=== PATIENT | male | born 1960 | race Caucasian/White ===

== ENCOUNTER 2019-11-13 22:10 | Inpatient (IN) | payer SELFPAY ==
[~2019-11-13] VITALS: Ht 190.5 cm; Wt 194.0 kg
[2019-11-13 23:38] LABS: BASOPHIL % 0.5 % (0-2); PLATELET COUNT 231 x10^3mcL (130-400)
[2019-11-13 23:39] LABS: RED CELL DISTRIBUTION WIDTH 15.6 % (11.5-14.5)
[2019-11-13 23:41] LABS: CARBON DIOXIDE 26.3 mmol/L (21-32); CREATININE SERUM 2.6 mg/dL (0.7-1.3); POTASSIUM SERUM 5.2 mmol/L (3.5-5.1)
[2019-11-13 23:45] LABS: ALBUMIN 3.5 g/dL (3.4-5.0); BILIRUBIN TOTAL 0.7 mg/dL (0.20-1.00); TOTAL PROTEIN, SERUM 7.7 g/dL (6.4-8.2)
[2019-11-14] VITALS (8 sets, daily range): BP systolic 84–116; BP diastolic 43–67
[2019-11-14] MEDS ORDERED: LASIX40 MG PO (00:23)
[2019-11-14] MEDS ORDERED: METOPROLOL SUC200 M2 PO (00:23)
[2019-11-14] MEDS ORDERED: ZESTRIL5 MG PO (00:24)
[2019-11-14] MEDS ORDERED: AMIODARONE200 MG PO (00:24)
[2019-11-14 01:14] LABS: CHOLESTEROL/HDL RATIO 8.5; MAGNESIUM 2.4 mg/dL (1.8-2.4); PHOSPHOROUS 4.2 mg/dL (2.5-4.9)
[2019-11-14 06:20] LABS: BASOPHIL % 0.6 % (0-2); PLATELET COUNT 202 x10^3mcL (130-400)
[2019-11-14 06:32] LABS: RED CELL DISTRIBUTION WIDTH 16.1 % (11.5-14.5)
[2019-11-14 06:41] LABS: CALCIUM 9.2 mg/dL (8.5-10.1); CARBON DIOXIDE 24.9 mmol/L (21-32); CREATININE SERUM 2.9 mg/dL (0.7-1.3); MAGNESIUM 2.3 mg/dL (1.8-2.4); PHOSPHOROUS 4.5 mg/dL (2.5-4.9); POTASSIUM SERUM 5.4 mmol/L (3.5-5.1)
[2019-11-14 12:06] LABS: UA SPECIFIC GRAVITY >=1.030 (1.005-1.035); microscopic required? YES; urine erythrocyte 2+ (NEGATIVE)
[2019-11-14 12:41] LABS: AMPHETAMINE QUAL UR NONE DETECTED (See below)
[2019-11-15 05:28] VITALS: BP 116/74
[2019-11-15 06:05] LABS: PLATELET COUNT 175 x10^3mcL (130-400)
[2019-11-15 06:19] LABS: RED CELL DISTRIBUTION WIDTH 15.6 % (11.5-14.5)
[2019-11-15 06:29] LABS: CALCIUM 9.1 mg/dL (8.5-10.1); CARBON DIOXIDE 24.4 mmol/L (21-32); CREATININE SERUM 3.2 mg/dL (0.7-1.3); MAGNESIUM 2.5 mg/dL (1.8-2.4); PHOSPHOROUS 4.4 mg/dL (2.5-4.9)
[2019-11-15 09:12] VITALS: BP 135/81
[2019-11-15 14:00] VITALS: BP 104/76
[2019-11-15 17:57] VITALS: BP 91/72
[2019-11-15 21:05] VITALS: BP 116/60
[2019-11-16] VITALS (7 sets, daily range): BP systolic 105–136; BP diastolic 61–85; Ht 190.5 cm; Wt 194.0 kg
[2019-11-16 07:10] LABS: BASOPHIL % 1.4 % (0-2); PLATELET COUNT 181 x10^3mcL (130-400)
[2019-11-16 07:15] LABS: RED CELL DISTRIBUTION WIDTH 15.4 % (11.5-14.5)
[2019-11-16 07:29] LABS: CARBON DIOXIDE 22.4 mmol/L (21-32); CREATININE SERUM 2.8 mg/dL (0.7-1.3); MAGNESIUM 2.3 mg/dL (1.8-2.4); PHOSPHOROUS 3.7 mg/dL (2.5-4.9); POTASSIUM SERUM 4.7 mmol/L (3.5-5.1)
[2019-11-17 03:26] VITALS: BP 111/72
[2019-11-17 05:37] LABS: BASOPHIL % 0.4 % (0-2); PLATELET COUNT 176 x10^3mcL (130-400); RED CELL DISTRIBUTION WIDTH 15.4 % (11.5-14.5)
[2019-11-17 06:13] LABS: CALCIUM 8.8 mg/dL (8.5-10.1); CARBON DIOXIDE 25.7 mmol/L (21-32); CREATININE SERUM 2.4 mg/dL (0.7-1.3); MAGNESIUM 2.3 mg/dL (1.8-2.4); PHOSPHOROUS 3.5 mg/dL (2.5-4.9)
[2019-11-17 08:15] VITALS: BP 101/71
[2019-11-17 16:14] VITALS: BP 105/68
[2019-11-17 19:30] VITALS: BP 103/74
[2019-11-17 23:26] VITALS: BP 95/51
[2019-11-18 02:39] LABS: BASOPHIL % 1.7 % (0-2); PLATELET COUNT 211 x10^3mcL (130-400)
[2019-11-18 02:45] LABS: CARBON DIOXIDE 23.5 mmol/L (21-32); CREATININE SERUM 2.4 mg/dL (0.7-1.3); MAGNESIUM 2.3 mg/dL (1.8-2.4); PHOSPHOROUS 3.4 mg/dL (2.5-4.9); POTASSIUM SERUM 4.8 mmol/L (3.5-5.1)
[2019-11-18 02:47] LABS: RED CELL DISTRIBUTION WIDTH 15.3 % (11.5-14.5)
[2019-11-18 03:26] VITALS: BP 124/76
[2019-11-18 07:30] VITALS: BP 105/78
[2019-11-18 12:09] VITALS: BP 107/78
[2019-11-18 15:52] VITALS: BP 114/69
[2019-11-18 19:14] VITALS: BP 104/69
[2019-11-19 04:37] VITALS: BP 127/70
[2019-11-19 07:23] LABS: CALCIUM 8.7 mg/dL (8.5-10.1); CARBON DIOXIDE 20.2 mmol/L (21-32); CREATININE SERUM 2.3 mg/dL (0.7-1.3); MAGNESIUM 2.4 mg/dL (1.8-2.4); PHOSPHOROUS 3.5 mg/dL (2.5-4.9); POTASSIUM SERUM 4.3 mmol/L (3.5-5.1)
[2019-11-19 07:52] LABS: BASOPHIL % 0.8 % (0-2); PLATELET COUNT 188 x10^3mcL (130-400)
[2019-11-19 08:32] LABS: RED CELL DISTRIBUTION WIDTH 15.6 % (11.5-14.5)
[2019-11-19 08:55] VITALS: BP 117/69
[2019-11-19 12:16] VITALS: BP 104/75
[2019-11-19 14:51] VITALS: BP 104/75
[2019-11-19 16:40] VITALS: BP 104/62
[2019-11-19 21:34] VITALS: BP 115/82
[2019-11-20 05:30] VITALS: BP 119/78
[2019-11-20 06:47] LABS: PLATELET COUNT 219 x10^3mcL (130-400)
[2019-11-20 06:55] LABS: CALCIUM 8.9 mg/dL (8.5-10.1); CARBON DIOXIDE 23.6 mmol/L (21-32); CREATININE SERUM 2.5 mg/dL (0.7-1.3); MAGNESIUM 2.3 mg/dL (1.8-2.4); PHOSPHOROUS 3.9 mg/dL (2.5-4.9)
[2019-11-20 08:09] LABS: RED CELL DISTRIBUTION WIDTH 15.3 % (11.5-14.5)
[2019-11-20 08:34] VITALS: BP 136/83
[2019-11-20 12:02] VITALS: BP 131/83
[2019-11-20 14:40] VITALS: BP 119/78
[2019-11-20] MEDS ORDERED: FLO4 PO (16:16)
[2019-11-20] MEDS ORDERED: ELIQUIS5 MG PO (16:16)
[2019-11-20] MEDS ORDERED: METOPROLOL TART25 M1 PO (16:16)
[2019-11-20] MEDS ORDERED: KEFLEX500 M1 PO (16:16)
[2019-11-20] MEDS ORDERED: L40 PO (16:16)
[2019-11-20] MEDS ORDERED: LIPI20 PO (16:16)
[2019-11-20] MEDS ORDERED: D25 PO (16:16)
== END 2019-11-20 17:30 | disposition home or self-care (01) | DRG 175 ==
LOC: ED 22:10 → DU 11-14 00:22 → IC 11-16 07:30 → MU 11-16 07:43 → IC 11-16 07:48 → DU 11-18 16:54 → IC 11-18 16:56 → DU 11-18 18:59
PROVIDERS: Emergency Medicine; ADMIT Family Medicine
DX: I26.99 Other pulmonary embolism without acute cor pulmonale (principal); I50.23 Acute on chronic systolic (congestive) heart failure; I13.0 Hypertensive heart and chronic kidney disease with heart failure and stage 1 through stage 4 chronic kidney disease, or unspecified chronic kidney disease; N17.9 Acute kidney failure, unspecified; N18.4 Chronic kidney disease, stage 4 (severe); I42.9 Cardiomyopathy, unspecified; I82.411 Acute embolism and thrombosis of right femoral vein; M94.0 Chondrocostal junction syndrome [Tietze]; I48.91 Unspecified atrial fibrillation; M10.9 Gout, unspecified; Z95.810 Presence of automatic (implantable) cardiac defibrillator; Z79.899 Other long term (current) drug therapy; E87.6 Hypokalemia; E78.5 Hyperlipidemia, unspecified; I95.9 Hypotension, unspecified; N20.0 Calculus of kidney; E87.5 Hyperkalemia
CPT/HCPCS: 83880; 97116-GP; 97530-GP; A9540; G0378; J0282; J0696; J1644; J1940; J2060; J3490; J7030; J7050; J7620; Q0092